=== PATIENT | male | born 1965 | race Two or more races ===

== ENCOUNTER 2024-09-03 10:37 | Emergency (ER) | payer MEDICAID, OTHER ==
[~2024-09-03] VITALS: Ht 172.7 cm; Wt 85.4 kg
[2024-09-03 11:21] VITALS: BP 150/100; PULSE 83; RESP 18; TEMP 97.8; O2SAT 97
[2024-09-03] MEDS: LIDOCAINE 1% HCL (LOCAL ANESTH.) INJ 20ML MDV ID ONE (11:51)
[2024-09-03] MEDS ORDERED: CEPH500C PO (12:21)
[2024-09-03] MEDS ORDERED: ACET500T58 PO (12:21)
--- NOTE | 2024-09-03 12:21 | ED.PDOC ---
HPI Comments 8-year-old gentleman with no pertinent MHx presents for a laceration to the volar aspect of the right index finger. Accident occurred while patient was pulling a with a log. Hemostasis obtained at this time. Denies any numbness tingling to the affected extremity. Last tetanus shot unknown Chief Complaint: Laceration Time Seen by MD: 11:07 Reviewed Notes: Nurses Notes, Medications, Allergies Allergies: Coded Allergies: NO KNOWN ALLERGIES (Unverified , 09/03/24) Information Source: Patient Mode of Arrival: Ambulatory Complexity: Intermediate Laceration Length (cm): 2 Skin Type: Avulsion, Flap, Jagged Depth of Injury: Skin Capillary Refill: < 3 seconds Tender: Moderate Discharge: None Erythema: None Past Medical History PAST MEDICAL HISTORY: Denies Surgical History: Denies all surgeries All Other Systems: Reviewed and Negative (Per HPI) Physical Exam General Appearance: No Apparent Distress, Normal HEENT: Normal ENT Inspection, Pharynx Normal, TMs Normal Neck: Full Range of Motion, Non-Tender, Normal, Normal Inspection Respiratory: Chest Non-Tender, Lungs Clear, No Accessory Muscle Use, No Respiratory Distress, Normal Breath Sounds Cardiovascular: No Edema, No JVD, No Murmur, No Gallop, Normal Peripheral Pulse s, Regular Rate/Rhythm Breast Exam: Deferred Gastrointestinal: No Organomegaly, Non Tender, No Pulsatile Mass, Normal Bowel Sounds, Soft Genitalia: Deferred Pelvic: Deferred Rectal: Deferred Extremities: No calf tenderness, Normal capillary refill, Normal inspection, Normal range of motion, Non-tender, No pedal edema Musculoskeletal : Apperance: Normal Neurologic: Alert, lead java programmer II-XII nml as Tested, No Motor Deficits, Normal Affect, Normal Mood, No Sensory Deficits Cerebellar Function: Normal Reflexes: Normal Skin: Dry, Normal Color, Warm Lymphatic: No Adenopathy Was a procedure done? Was a procedure done?: Yes Sedation Sedation?: No Laceration Repair : Location right index Length 2 Anesthetic: Lidocaine Laceration Repair Prep: Saline, Betadine, Manual Scrub Laceration Repair Wound Comple: epidermis/dermis repair Laceration Repair: Number of sutures (4), Size (5-0), Simple, Bacitracin, Non-adherent gauze, Gauze Informed consent obtained: Yes Risks, benefits, and alternati: Yes Differential diagnosis Generic Laceration: Abrasion/Contusion, Laceration X-Ray, Labs, Meds, VS Vital Signs Date Time Temp Pulse Resp B/P (MAP) Pulse Ox O2 Delivery O2 Flow Rate FiO2 09/03/24 11:21 97.8 83 18 150/100 (117) 97 97.8 09/03/24 11:21 83 18 97 Room Air 09/03/24 10:50 97.7 81 20 158/101 (120) 97 X-Ray, Labs, Meds, VS Comment The skin edges of the laceration were infiltrated with 1% lidocaine The skin surrounding the laceration was scrubbed with Betadine soaked sterile gauze The laceration was irrigated under high-pressure with a 60 mL syringe A total of 1L sterile water was used. Including diluted Betadine solution The laceration was prepped in sterile fashion with sterile drapes On examination under direct light, there was no foreign body seen The laceration was repaired in simple interrupted technique There was no continuing bleeding on repair. There were no complications related to repair Antibiotics * Tetanus prophylaxis: Education and follow-up instructions provided Wound check in 2 days Return sooner for signs of infection such as fevers, increased pain, redness, green, yellow discharge, or any concerns Keep wound dry for 24 to 48 hours; dry dressing may be changed Protect from sunlight and keep area clean and dry. Use soap and water if it gets dirty High risk of possible scarring and education provided on ways to minimize scarring after wound heals Also provided education on possible complications post procedure including wound dehiscence, infection, etc. Time of 1ST Reevaluation: 12:19 Reevaluation 1ST: Improved Patient Education/Counseling: Diagnosis, Treatment Family Education/Counseling: Diagnosis, Treatment Departure 1 Departure Time of Disposition: 12:19 Impression: Primary Impression: Laceration Disposition: 01 HOME / SELF CARE / HOMELESS Condition: Stable e-Prescriptions Acetaminophen (Acetaminophen) 500 Mg Tab 500 MG PO Q4HP PRN for 14 Days, #70 TAB 0 Refills Prov: MELIDA COLE HORSEBACK RIDING INSTRUCTOR 09/03/24 Cephalexin Monohydrate (Cephalexin) 500 Mg Cap 1 CAP PO QID for 5 Days, #20 CAP 0 Refills Prov: MELIDA COLE [employer]ORSEBACK RIDING INSTRUCTOR 09/03/24 Discharged With: Self Critical Care Note Critical Care Time?: No Stability Stability form required: No Heart Score Heart Score: Heart Score Response (Comments) Value History N/A 0 EKG N/A 0 Age N/A 0 Risk Factors N/A 0 Troponin N/A 0 Total 0 MELIDA COLE NP Sep 03, 2024 12:21
[2024-09-03] MEDS: TETANUS-DIPTH-ACEL PERTUSSIS 0.5ML SYR Tdap IM ONE (12:28)
[2024-09-03] MEDS: NEOMYCIN-BACITRACIN-POLYM UNITDOSE PKG TOP OINT TOP ONE (12:30)
== END 2024-09-03 12:35 | disposition home or self-care (01) ==
LOC: ER 10:37
DX: S61.210A Laceration without foreign body of right index finger without damage to nail, initial encounter (principal); W26.8XXA Contact with other sharp object(s), not elsewhere classified, initial encounter; Y93.89 Activity, other specified; Y92.89 Other specified places as the place of occurrence of the external cause; Y99.8 Other external cause status
CPT/HCPCS: 12001; 90471; 90715; 99283; J2003